=== PATIENT | female | born 1985 | race African-American/Black ===

== ENCOUNTER 2019-06-09 14:14 | Emergency (ER) | payer SELFPAY ==
[2019-06-09 14:26] VITALS: TEMP 97.8; BMI 29.8
--- NOTE | 2019-06-09 14:28 | PDOC ---
Rapid Medical Evaluation Time Seen by Provider: 06/09/19 14:23 Medical Evaluation: 06/09/19 14:23 The patient is a 33 y/o F who presents for shortness of breath for two weeks. Hx of asthma. LMP 04/23/19. Recently emigrated from [facility]. Exam: lungs CTAB Orders: labs, IV, urine Pt to proceed to the ER for further evaluation Discharge Disposition - Diagnosis Shortness of breath - Referrals - Patient Instructions - Post Discharge Activity
[2019-06-09] MEDS ORDERED: ALBUTEROL SO4 2.5/IPRATROPIUM 0.5 INH SOL 3 ML VIAL.NEB. NEB ONE ×2 (15:47→16:19)
--- NOTE | 2019-06-09 16:00 | PDOC ---
History of Present Illness - General Chief Complaint: Shortness of Breath Stated Complaint: SHORTNESS OF BREATH Time Seen by Provider: 06/09/19 14:23 History Source: Patient Exam Limitations: No Limitations - History of Present Illness Initial Comments: 06/09/19 15:56 33-year-old female currently 7 weeks based on LMP presents to ED with increasing shortness of breath of the past 2 weeks. Patient states recent travel from [facility] 30 days ago and has not seen a retail business manager or PCP since onset. Patient states has history of asthma but has not been wheezing or coughing. Patient states difficulty taking a deep breath and denies fever, chills chest pain or palpitations. Patient states shortness of breath is constant. Is this a multiple visit Asthma Patient?: No Timing/Duration: reports: other Severity: reports: moderate Associated Symptoms: reports: shortness of breath Past History - Travel Traveled outside of the country in the last 30 days: No Close contact w/someone who was outside of country & ill: No - Past Medical History Allergies/Adverse Reactions: Allergies Allergy/AdvReac Type Severity Reaction Status Date / Time No Known Allergies Allergy Verified 06/09/19 14:26 Asthma: Yes COPD: No - Psycho Social/Smoking Cessation Hx Smoking History: Never smoked Patient Lives Alone: No Lives with/in: spouse/SO Respiratory Specific PMHX - Complaint Specific PMHX Hx Asthma: Yes Review of Systems - Review of Systems Able to Perform ROS?: Yes Constitutional: No: Symptoms Reported HEENTM: No: Symptoms Reported Respiratory: Yes: Shortness of Breath Cardiac (ROS): No: Symptoms Reported ABD/GI: No: Symptoms Reported : No: Symptoms Reported Musculoskeletal: No: Symptoms Reported Integumentary: No: Symptoms Reported Neurological: No: Symptoms reported Endocrine: No: Symptoms Reported Hematologic/Lymphatic: No: Symptoms Reported *Physical Exam - Vital Signs Last Vital Signs Temp Pulse Resp BP Pulse Ox 97.8 F 79 16 106/59 L 100 06/09/19 14:19 06/09/19 14:19 06/09/19 14:19 06/09/19 14:19 06/09/19 14:19 - Physical Exam General Appearance: Yes: Nourished, Appropriately Dressed. No: Apparent Distress HEENT: negative: Pale Conjunctivae Neck: positive: Normal Thyroid Respiratory/Chest: positive: Lungs Clear, Decreased Breath Sounds (At bases with inspiration). negative: Chest Tender, Respiratory Distress, Accessory Muscle Use Cardiovascular: positive: Regular Rhythm, Regular Rate. negative: Murmur Extremity: positive: Normal Inspection Integumentary: positive: Normal Color, Warm, Moist Neurologic: positive: Motor Strength 5/5 (Ambulatory ) Heart Score/ECG Review - ECG Intrepretation Rhythm: Regular Rhythm (rate 73, normal sinus rhythm. No ST elevation or depression.) ED Treatment Course - LABORATORY CBC & Chemistry Diagram: 06/09/19 16:35 06/09/19 16:15 Medical Decision Making - Medical Decision Making 06/09/19 15:59 Chief complaint: Shortness of breath consistently for the past 2 weeks. Patient with recent travel to [facility] 4 weeks ago and is currently 7 weeks . Patient denies clotting disorders but states history of asthma. Patient does not have complaints of wheezing or cough Exam: Patient decreased breath sounds at bases with inspiration, vital signs stable Plan: Labs, EKG, urine, and d-dimer 06/09/19 18:03 Selected Entries 06/09/19 14:19 Temperature 97.8 F Pulse Rate 79 Respiratory 16 Rate Blood Pressure 106/59 L Blood Pressure 74 Mean O2 Sat by Pulse 100 Oximetry (%) Weight 83.915 kg Laboratory Tests 06/09/19 06/09/19 06/09/19 16:05 16:05 16:05 WBC Hgb Hct Absolute Neuts (auto) Neutrophils % Monocytes % PT with INR 12.00 INR 1.02 D-Dimer 6643 H Sodium Potassium Chloride Carbon Dioxide Anion Gap BUN Creatinine Est GFR (CKD-EPI)AfAm Est GFR (CKD-EPI)NonAf Random Glucose Calcium Total Bilirubin AST ALT Alkaline Phosphatase Total Protein Albumin Beta HCG, Quant 59202.8 06/09/19 06/09/19 16:15 16:35 WBC 3.7 L Hgb 12.7 Hct 38.8 Absolute Neuts (auto) 1.8 Neutrophils % 49.3 Monocytes % 10.7 H PT with INR INR D-Dimer Sodium 134 L Potassium 3.9 Chloride 103 Carbon Dioxide 25 Anion Gap 6 L BUN 4.9 L Creatinine 0.6 Est GFR (CKD-EPI)AfAm 136.87 Est GFR (CKD-EPI)NonAf 118.09 Random Glucose 77 Calcium 9.4 Total Bilirubin 0.3 AST 10 L ALT 17 Alkaline Phosphatase 50 Total Protein 7.8 Albumin 3.7 Beta HCG, Quant Patient concerning for PE. Patient ordered for duplex. If positive may start empirical treatment with heparin. 06/09/19 18:16 Discharge - Discharge Information Problems reviewed: Yes Clinical Impression/Diagnosis: Shortness of breath Condition: Fair Disposition: AGAINST MEDICAL ADVICE - Follow up/Referral Referrals: Chase Daniel MD [Staff Physician] - Khanh Dc MD [Staff Physician] - - Patient Discharge Instructions Additional Instructions: You are leaving the hospital AGAINST MEDICAL ADVICE. The medical plan for you was to have a CAT scan of your chest with IV contrast to rule out a blood clot in your lungs. To see her you refused this testing at this time. Admission was offered you to be evaluated by a senior database engineer. You refused this plan also. Leaving AGAINST MEDICAL ADVICE you accept all risks and responsibilities of complications due to shortness of breath and . You been given the names of an TRAFFIC DIVISION COMMANDING OFFICER and a senior database engineer to follow-up with as an outpatient. If any of your symptoms worsen, you are more than welcome to return to the emergency department for continued evaluation. You are leaving AGAINST MEDICAL ADVICE will not be held against you and we would welcome you to return for continued evaluation. - Post Discharge Activity
[2019-06-09 17:15] LABS: BASO % 0.7 % (0-2.0); HEMATOCRIT 38.8 % (32.4-45.2); HEMOGLOBIN 12.7 GM/dL (10.7-15.3); LYMPH % 38.3 % (8-40); MCH 28.4 pg (25.7-33.7); MCHC 32.8 g/dl (32.0-36.0); MEAN CELL VOLUME 86.4 fl (80-96); MEAN PLT VOLUME 7.7 fl (7.5-11.1); MONO % 10.7 % (3.8-10.2); NEUT % 49.3 % (42.8-82.8); PLATELET COUNT 297 K/MM3 (134-434); RBC 4.49 M/mm3 (3.60-5.2); RDW 13.9 % (11.6-15.6); WHITE BLOOD COUNT 3.7 K/mm3 (4.0-10.0)
[2019-06-09 17:42] LABS: ALBUMIN 3.7 g/dl (3.4-5.0); BILIRUBIN,TOTAL 0.3 mg/dL (0.2-1); BLOOD UREA NITROGEN 4.9 mg/dL (7-18); CALCIUM 9.4 mg/dL (8.5-10.1); CREATININE 0.6 mg/dL (0.55-1.3); POTASSIUM 3.9 mmol/L (3.5-5.1); TOT PROT 7.8 g/dl (6.4-8.2)
[2019-06-09 17:47] LABS: INR 1.02 (0.83-1.09)
[2019-06-09 18:17] LABS: URINE COLOR DK YELLOW
[2019-06-09 18:19] LABS: URINE APPEARANCE CLEAR; URINE GLUCOSE (UA) NEGATIVE (NEGATIVE)
[2019-06-09 18:20] LABS: URINE BILIRUBIN NEGATIVE (NEGATIVE)
[2019-06-09 18:23] LABS: URINE KETONE 1+ (NEGATIVE); URINE PROTEIN 1+ (NEGATIVE)
[2019-06-09 18:24] LABS: URINE LEUK ESTERASE NEGATIVE (NEGATIVE); URINE NITRITE NEGATIVE (NEGATIVE)
--- NOTE | 2019-06-09 20:40 | PDOC ---
*Physical Exam - Vital Signs Last Vital Signs Temp Pulse Resp BP Pulse Ox 97.8 F 79 16 106/59 L 100 06/09/19 14:19 06/09/19 14:19 06/09/19 14:19 06/09/19 14:19 06/09/19 15:55 ED Treatment Course - LABORATORY CBC & Chemistry Diagram: 06/09/19 16:35 06/09/19 16:15 - ADDITIONAL ORDERS Additional order review: Laboratory Results 06/09/19 06/09/19 06/09/19 16:35 16:15 16:05 PT with INR INR D-Dimer 6643 H Sodium 134 L Potassium 3.9 Chloride 103 Carbon Dioxide 25 Anion Gap 6 L BUN 4.9 L Creatinine 0.6 Est GFR (CKD-EPI)AfAm 136.87 Est GFR (CKD-EPI)NonAf 118.09 Random Glucose 77 Calcium 9.4 Total Bilirubin 0.3 AST 10 L ALT 17 Alkaline Phosphatase 50 Total Protein 7.8 Albumin 3.7 Beta HCG, Quant Urine Color Urine Appearance Urine pH Ur Specific [place] Urine Protein Urine Glucose (UA) Urine Ketones Urine Blood Urine Nitrite Urine Bilirubin Urine Urobilinogen Ur Leukocyte Esterase Blood Type O POSITIVE Antibody Screen Negative 06/09/19 06/09/19 06/09/19 16:05 16:05 16:05 PT with INR 12.00 INR 1.02 D-Dimer Sodium Potassium Chloride Carbon Dioxide Anion Gap BUN Creatinine Est GFR (CKD-EPI)AfAm Est GFR (CKD-EPI)NonAf Random Glucose Calcium Total Bilirubin AST ALT Alkaline Phosphatase Total Protein Albumin Beta HCG, Quant 66003.8 Urine Color Dk yellow Urine Appearance Clear Urine pH 6.0 Ur Specific [place] 1.029 Urine Protein 1+ H Urine Glucose (UA) Negative Urine Ketones 1+ H Urine Blood Negative Urine Nitrite Negative Urine Bilirubin Negative Urine Urobilinogen 1.0 Ur Leukocyte Esterase Negative Blood Type Antibody Screen 06/09/19 16:35 RBC 4.49 MCV 86.4 MCHC 32.8 RDW 13.9 MPV 7.7 Neutrophils % 49.3 Lymphocytes % 38.3 Monocytes % 10.7 H Eosinophils % 1.0 Basophils % 0.7 - Medications Given in the ED: ED Medications Discontinued Medications Generic Name Dose Route Start Last Admin Trade Name Freq PRN Reason Stop Dose Admin Albuterol/Ipratropium 1 amp 06/09/19 15:47 06/09/19 16:20 Duoneb - NEB 06/09/19 15:48 1 amp ONCE ONE Administration ED Progress Note - Progress Note Progress Note: 06/09/19 20:40 Received patient from nurse practitioner Tristian. Briefly this a 33-year-old woman who has had 4 to 5 days of shortness of breath. Patient recently traveled from [facility] and is currently 7 weeks . Patient with a d-dimer of 6643. Duplex Dopplers of bilateral lower extremities revealed no DVT. CTA of the chest is pending to rule out pulmonary embolism. 06/09/19 22:13 Medical Decision Making - Medical Decision Making 06/09/19 22:13 Consent discussed with patient who refuses to sign over concerns for the child. Patient was aware of risks of CAT scan on the child versus pulmonary embolism. Patient is adamant not to receive IV contrast and CAT scan at this time. Case has been discussed with Dr. Dc of CHEST PAIN COORDINATOR. He recommends deferring treatment until patient has a known study. Admission was discussed with the patient's risk reevaluated by pulmonology and so she could think about CTA study and potentially decide to have the scan. Patient refuses admission at this time. Case has been discussed with attending physician Mike who is aware that the patient will leave the hospital AGAINST MEDICAL ADVICE. The patient has requested to leave the ED against medical advice. Pt did not want CTA or admission. I believe this patient is of sound mind and competent to refuse medical care. The patient is responding and asking questions appropriately. The patient is oriented to person, place and time. The patient is not psychotic, delusional, suicidal, homicidal or hallucinating. The patient demonstrates a normal mental capacity to make decisions regarding their healthcare. The patient is clinically sober and does not appear to be under the influence of any illicit drugs at this time. The patient has been advised of the risks, in layman terms, of leaving AMA which include, but are not limited to: cardiac arrest, pulmonary infarct, myocardial infarction, arrhythmia, stroke, demise, respiratory failure, coma, severe permanent disability, loss of current lifestyle, delay in diagnosis and . Alternatives have been offered - the patient remains steadfast in their wish to leave. The patient has been advised that should they change their mind they are welcome to return to this hospital, or any other, at any time. The patient understands that in no way does an AMA discharge mean that I do not want them to have the best medical care available. To this end, I have provided appropriate prescriptions, referrals, and discharge instructions. The patient did sign AMA paperwork. The above discussion was witnessed by another member of staff, SEA Rios. Discharge - Discharge Information Problems reviewed: Yes Clinical Impression/Diagnosis: Shortness of breath Condition: Fair Disposition: AGAINST MEDICAL ADVICE - Admission No - Follow up/Referral Referrals: Khanh Dc MD [Staff Physician] - Chase Daniel MD [Staff Physician] - - Patient Discharge Instructions Additional Instructions: You are leaving the hospital AGAINST MEDICAL ADVICE. The medical plan for you was to have a CAT scan of your chest with IV contrast to rule out a blood clot in your lungs. To see her you refused this testing at this time. Admission was offered you to be evaluated by a apprentice painter neckties. You refused this plan also. Leaving AGAINST MEDICAL ADVICE you accept all risks and responsibilities of complications due to shortness of breath and . You been given the names of an CHEST PAIN COORDINATOR and a apprentice painter neckties to follow-up with as an outpatient. If any of your symptoms worsen, you are more than welcome to return to the emergency department for continued evaluation. You are leaving AGAINST MEDICAL ADVICE will not be held against you and we would welcome you to return for continued evaluation. - Post Discharge Activity
[2019-06-09 21:22] VITALS: BP 111/65; PULSE 75
--- NOTE | 2019-06-10 09:56 | EKG ---
Test Reason : Blood Pressure : / mmHG Vent. Rate : 073 BPM Atrial Rate : 073 BPM P-R Int : 178 ms QRS Dur : 080 ms QT Int : 386 ms P-R-T Axes : 057 015 032 degrees QTc Int : 425 ms NORMAL SINUS RHYTHM NONSPECIFIC T WAVE ABNORMALITY ABNORMAL ECG NO PREVIOUS ECGS AVAILABLE Confirmed by MD FLORIDALMA, ANA ([id number]) on 06/10/2019 9:55:40 AM Referred By: Confirmed By:ANA HEDRICK MD
== END 2019-06-09 20:45 | disposition left against medical advice (07) ==
LOC: JER 14:14
PROC: 3E0F7GC Introduction of Other Therapeutic Substance into Respiratory Tract, Via Natural or Artificial Opening (ICD-10-PCS; principal; 2019-06-09)
DX: O26.891 Other specified pregnancy related conditions, first trimester (principal); R06.02 Shortness of breath; Z3A.01 Less than 8 weeks gestation of pregnancy; Z87.09 Personal history of other diseases of the respiratory system
CPT/HCPCS: 36415; 80053; 81003; 84702; 85025; 85379; 85610; 86850; 86900; 86901; 87086; 93005; 93010; 93970-TC; 99284-25

== ENCOUNTER 2020-02-05 19:10 | Inpatient (IN) | payer OTHER ==
[2020-02-05] MEDS ORDERED: DINOPROSTONE 10 MG VAGINAL SUPPOSITORY VG ONE (20:58)
--- NOTE | 2020-02-05 21:02 | HP ---
Past Medical History - Admission Chief Complaint: Elective induction History of Present Illness: 34 yo @ 41 weeks gestation, EDC 01/29/20, admitted for cervidil induction. She has no complaints. History Source: Patient Limitations to Obtaining History: No Limitations - Past Medical History ...: 2 ...Para: 1 ...EDC by Bryan: 01/29/20 - Past Surgical History Past Surgical History: Yes: None Hx Myomectomy: No Hx Transabdominal Cerclage: No - Smoking History Smoking history: Never smoked - Alcohol/Substance Use Hx Alcohol Use: No History of Substance Use: reports: None - Social History Usual Living Arrangement: Yes: With Spouse History of Recent Travel: No Home Medications - Allergies Allergies/Adverse Reactions: Allergies Allergy/AdvReac Type Severity Reaction Status Date / Time No Known Allergies Allergy Verified 01/29/20 21:21 - Home Medications Home Medications: Ambulatory Orders Ferrous Sulfate [Feosol] 325 mg PO DAILY 01/29/20 Mv-Mn/Iron/FA/Herbal/Digestive [ One Tablet] 1 each PO DAILY 01/29/20 Family Medical History Family History: Unremarkable Review of Systems - Review of Systems Constitutional: reports: No Symptoms Eyes: reports: No Symptoms HENT: reports: No Symptoms Neck: reports: No Symptoms Cardiovascular: reports: No Symptoms Respiratory: reports: No Symptoms Gastrointestinal: reports: No Symptoms Genitourinary: reports: No Symptoms Breasts: reports: No Symptoms Reported Musculoskeletal: reports: No Symptoms Integumentary: reports: No Symptoms Neurological: reports: No Symptoms Pain Intensity: 0 Physical Exam - Maternity Constitutional: Yes: No Distress Eyes: Yes: Conjunctiva Clear HENT: Yes: Atraumatic Neck: Yes: Supple Cardiovascular: Yes: Regular Rate and Rhythm Lungs: Clear to auscultation Breast(s): Yes: WNL - Abdominal Exam/OB Number of Fetuses: Single Presentation: Vertex Contractions: No - Vaginal Exam/OB Vaginal Bleeding: No - Physical Exam Musculoskeletal: Yes: WNL Extremities: Yes: WNL ...Motor Strength: WNL Psychiatric: Yes: Alert, Oriented Problem List - Problems (1) Post-dates Problems reviewed: Yes Code(s): O48.0 - POST-TERM Qualifiers: Post-term type: 40-42 weeks gestation Qualified Code(s): O48.0 - Post-term Assessment/Plan Postdates Admit for cervidil induction
[2020-02-05 21:26] LABS: BASO % 0.3 % (0-2.0); HEMATOCRIT 35.6 % (32.4-45.2); HEMOGLOBIN 11.8 GM/dL (10.7-15.3); LYMPH % 32.3 % (8-40); MCH 30.2 pg (25.7-33.7); MCHC 33.3 g/dl (32.0-36.0); MEAN CELL VOLUME 90.9 fl (80-96); MEAN PLT VOLUME 8.3 fl (7.5-11.1); MONO % 9.2 % (3.8-10.2); NEUT % 57.2 % (42.8-82.8); PLATELET COUNT 265 K/MM3 (134-434); RBC 3.92 M/mm3 (3.60-5.2); RDW 14.1 % (11.6-15.6); WHITE BLOOD COUNT 4.9 K/mm3 (4.0-10.0)
[2020-02-05 21:34] LABS: INR 0.94 (0.83-1.09); PROTHROMBIN TIME (PATIENT) 11.1 SEC (9.7-13.0)
[2020-02-05 21:50] LABS: BLOOD UREA NITROGEN 4.1 mg/dL (7-18); CALCIUM 8.6 mg/dL (8.5-10.1); CREATININE 0.5 mg/dL (0.55-1.3); POTASSIUM 3.4 mmol/L (3.5-5.1)
--- NOTE | 2020-02-05 21:59 | PN ---
Progress Note (short form) - Note Progress Note: 34 yo , EGA 41 weeks for induction of labor VSS, afebrile EFM - 140/min, moderate variability, accelerations, no decelerations Tocos - irritability Pelvic - Closed/long/posterior/vertex Plan - Late term gestation for cervidil ripening Cervidil placed Anticipate vaginal delivery
[2020-02-05] MEDS: DEXTROSE 5%-LACTATED RINGERS 1,000 ML IV SCH (22:00)
[2020-02-05 23:13] VITALS: BMI 34.3
[2020-02-06] MEDS: DEXTROSE 5%-LACTATED RINGERS 1,000 ML IV SCH ×3 (06:00→20:00)
--- NOTE | 2020-02-06 10:03 | PN ---
Progress Note (short form) - Note Progress Note: Patient seen and evaluated, she's lying comfortably in bed. FHR : Reassuring [place] : + regular contractions VE : Cervix closed Cervidil removed A/P : Postdates S/P Cervidil induction Start Pitocin Analgesia as needed Problem List - Problems (1) Post-dates Code(s): O48.0 - POST-TERM Qualifiers: Post-term type: 40-42 weeks gestation Qualified Code(s): O48.0 - Post-term
[2020-02-06] MEDS: OXYTOCIN 30 UNITS in 0.9% NS 30 UNIT/500 ML INFUS.BAG IVPB SCH (11:00)
[2020-02-07] MEDS ORDERED: BUTORPHANOL TARTRATE 2 MG/ML VIAL IVPUSH PRN (03:07)
[2020-02-07] MEDS ORDERED: PROMETHAZINE HCL 25 MG/1 ML VIAL IVPB PRN (03:08)
[2020-02-07] MEDS ORDERED: FENTANYL/BUPIVACAINE/NS/PF - PCEA - 50 ML DISP.SYRIN EP ONE (04:41)
[2020-02-07] MEDS: ELECTROLYTE-148 SOLN 1,000 ML IV SCH (05:00)
[2020-02-07] MEDS: FENTANYL/BUPIVACAINE/NS/PF - PCEA - 50 ML DISP.SYRIN EP SCH (05:20)
[2020-02-07] MEDS ORDERED: NALOXONE HCL 0.4 MG/ML VIAL IVPUSH PRN (05:34)
[2020-02-07] MEDS ORDERED: BUPIVACAINE HCL/PF 0.25% (2.5MG/ML) 10 ML VIAL ONE (06:21)
[2020-02-07] MEDS ORDERED: ELECTROLYTE-148 SOLN 500 ML IV ONE (08:51)
[2020-02-07] MEDS ORDERED: CITRIC ACID/SODIUM CITRATE 30 ML UNIT-DOSE CUP PO ONE (08:51)
[2020-02-07] MEDS ORDERED: PCA PUMP NR ONE (08:52)
--- NOTE | 2020-02-07 08:57 | PN ---
Progress Note (short form) - Note Progress Note: Patient seen and evaluated, she's lying comfortably in bed. She's status post epidural anesthesia. FHR : 150's, decrease variability, occasional variable decelerations. [place] : Contractions absent VE : Cervix 4-5/90/-1 A/P : Postdates Failed medical induction Non-reassuring heart rate Consent signed for primary Anesthesiologist called Problem List - Problems (1) Post-dates Code(s): O48.0 - POST-TERM Qualifiers: Post-term type: 40-42 weeks gestation Qualified Code(s): O48.0 - Post-term
[2020-02-07] MEDS ORDERED: SODIUM BICARBONATE 8.4% 50 MEQ/50 ML VIAL ONE (09:08)
[2020-02-07] MEDS ORDERED: LIDO 2%/EPI 1:200000 PRESRVFRE (20 ML SDVIAL) ONE (09:09)
[2020-02-07] MEDS ORDERED: OXYTOCIN 20 UNITS in 0.9% NS 20 UNIT/1,000 ML INFUS.BAG IV ONE ×2 (09:30→13:04)
[2020-02-07] MEDS ORDERED: ceFAZolin SODIUM 1 GM VIAL ONE (09:32)
[2020-02-07] MEDS ORDERED: ePHEDrine SULFATE 50 MG/1 ML AMPULE ONE (09:36)
[2020-02-07] MEDS ORDERED: METHYLERGONOVINE MALEATE 0.2 MG/1 ML AMP IM PRN (10:21)
[2020-02-07] MEDS ORDERED: oxyCODONE HCL 5 MG TABLET PO PRN (10:21)
[2020-02-07] MEDS ORDERED: IBUPROFEN 800 MG/8 ML IJ IVPB PRN (10:21)
[2020-02-07 10:23] LABS: CORD BASE EXCESS -5.5 mmol/L (0-2); CORD HCO3 20.7 mmHg (20-29); CORD HCO3 24.1 mmHg (20-29); CORD PCO2 42.7 mmHg (30-78); CORD PCO2 50.9 mmHg (30-78); CORD pH 7.293 (7.14-7.44); CORD pH 7.303 (7.14-7.44)
--- NOTE | 2020-02-07 10:25 | OP ---
Operative Note - Note: Operative Date: 02/07/20 Pre-Operative Diagnosis: Nonreassuring Heart Rate / Failed Medical Induction Operation: Primary Low Transverse Findings: Baby girl in LOT position Post-Operative Diagnosis: Same as Pre-op Surgeon: Ilana Garner Dial Printer: Monico Nuñez Anesthesia: Epidural Specimens Removed: Placenta Estimated Blood Loss (mls): 700
[2020-02-07] MEDS: OXYTOCIN 20 UNITS in 0.9% NS 20 UNIT/1,000 ML INFUS.BAG IV SCH (10:45)
--- NOTE | 2020-02-07 14:14 | PN ---
Progress Note (short form) - Note Progress Note: I assisted jigar Squires at the c/section for the entirety of the case.
[2020-02-08 07:59] LABS: BASO % 0.3 % (0-2.0); EOS % 0.2 % (0-4.5); HEMATOCRIT 33.4 % (32.4-45.2); LYMPH % 10.3 % (8-40); MCH 29.9 pg (25.7-33.7); MCHC 32.9 g/dl (32.0-36.0); MEAN CELL VOLUME 90.7 fl (80-96); MONO % 5.9 % (3.8-10.2); NEUT % 83.3 % (42.8-82.8); PLATELET COUNT 240 K/MM3 (134-434); RBC 3.69 M/mm3 (3.60-5.2); RDW 14.2 % (11.6-15.6); WHITE BLOOD COUNT 12.8 K/mm3 (4.0-10.0)
[2020-02-08] MEDS ORDERED: BISACODYL 10 MG SUPP.RECT RC PRN (10:21)
[2020-02-08] MEDS: IBUPROFEN 600 MG TABLET (FP) PO PRN (17:11)
[2020-02-08] MEDS: SIMETHICONE 80 MG TAB.CHEW (FP) PO PRN (17:12)
[2020-02-08] MEDS: DEXTROSE 5%-LACTATED RINGERS 1,000 ML IV SCH (21:03)
--- NOTE | 2020-02-08 23:48 | PN ---
Post Note - Post Date of Delivery: 02/07/20 Post Day: 1 Vital Signs: Vital Signs - 24 hr 02/08/20 02/08/20 02/08/20 00:00 01:00 02:00 Temperature 99.0 F Pulse Rate 94 H Respiratory 18 18 18 Rate Blood Pressure 105/59 L 02/08/20 02/08/20 02/08/20 03:00 04:00 06:00 Temperature 98.7 F Pulse Rate 75 Respiratory 18 18 18 Rate Blood Pressure 99/55 L 02/08/20 02/08/20 02/08/20 08:00 10:00 21:35 Temperature 98.5 F 98.6 F Pulse Rate 67 76 Respiratory 20 20 18 Rate Blood Pressure 107/68 110/67 Labs: Laboratory Results - last 24 hr 02/08/20 07:40 WBC 12.8 H RBC 3.69 Hgb 11.0 Hct 33.4 MCV 90.7 MCH 29.9 MCHC 32.9 RDW 14.2 Plt Count 240 MPV 8.0 Absolute Neuts (auto) 10.7 H Neutrophils % 83.3 H D Lymphocytes % 10.3 D Monocytes % 5.9 Eosinophils % 0.2 Basophils % 0.3 Nucleated RBC % 0 - Subjective Subjective: No Complaints - Objective Afebrile: Yes Breast: Not engorged Abdomen: Soft, Non-tender, Other (+ dressing dry) Uterus: Fundus firm Vagina: Scant lochia Extremities: Non-tender - Assessment/Plan (1) History of low transverse section Assessment: Other (POD1) Plan: Routine Care
[2020-02-09] MEDS: IBUPROFEN 600 MG TABLET (FP) PO PRN ×3 (05:52→20:22)
[2020-02-09] MEDS: SIMETHICONE 80 MG TAB.CHEW (FP) PO PRN ×3 (05:53→20:23)
--- NOTE | 2020-02-09 08:19 | PN ---
Post Note - Post Date of Delivery: 02/07/20 Post Day: 2 Vital Signs: Vital Signs - 24 hr 02/08/20 02/08/20 10:00 21:35 Temperature 98.5 F 98.6 F Pulse Rate 67 76 Respiratory 20 18 Rate Blood Pressure 107/68 110/67 - Subjective Subjective: No Complaints - Objective Afebrile: Yes Breast: Not engorged Abdomen: Soft, Non-tender Uterus: Fundus firm Vagina: Scant lochia Extremities: Non-tender - Assessment/Plan (1) History of low transverse section Assessment: Other (SP CS POD2) Plan: Routine Care
[2020-02-09] MEDS: OXYTOCIN 20 UNITS in 0.9% NS 20 UNIT/1,000 ML INFUS.BAG IV SCH ×2 (15:40→18:56)
[2020-02-09] MEDS: FENTANYL/BUPIVACAINE/NS/PF - PCEA - 50 ML DISP.SYRIN EP SCH ×2 (15:40→18:56)
[2020-02-09] MEDS: ELECTROLYTE-148 SOLN 1,000 ML IV SCH ×2 (15:40→18:56)
[2020-02-09] MEDS: DEXTROSE 5%-LACTATED RINGERS 1,000 ML IV SCH (18:56)
[2020-02-09] MEDS: OXYTOCIN 30 UNITS in 0.9% NS 30 UNIT/500 ML INFUS.BAG IVPB SCH ×2 (19:26→19:27)
--- NOTE | 2020-02-09 21:52 | OP ---
DATE OF OPERATION: 02/07/2020 PREOPERATIVE DIAGNOSIS: Nonreassuring heart rate, failed medical induction at 41 weeks' gestation. POSTOPERATIVE DIAGNOSIS: Nonreassuring heart rate, failed medical induction at 41 weeks' gestation. PROCEDURE: Primary low transverse section. SURGEON: Ilana Garner MD WOOL PULLER: Monico Nuñez MD ANESTHESIA: Epidural. COMPLICATIONS: None. ESTIMATED BLOOD LOSS: 700 mL. DESCRIPTION OF PROCEDURE: Patient was taken to the operating room where epidural anesthesia was found to be adequate. Patient was then prepped and draped in proper sterile fashion. A Pfannenstiel skin incision was then made and carried down through the underlying layer of fascia. The fascia was incised in the midline and extended laterally. The superior aspect of the fascial incision was then grasped with a Arun clamp, elevated, and the rectus muscle dissected off bluntly. Attention was then turned to the inferior aspect of the fascial incision, which in a similar fashion was then grasped with a Arun clamp, elevated, and the rectus muscle dissected off bluntly. The rectus muscle was then in the midline, the peritoneum identified and entered sharply with the Metzenbaum scissors. The peritoneal incision was extended superiorly and inferiorly, with good visualization of the bladder, the vesicouterine peritoneum was then entered using the Metzenbaum scissors. This incision was extended laterally and a bladder flap created digitally. The bladder blade was inserted, and the lower uterine segment was incised using a 10-blade. This incision was extended laterally and the head delivered atraumatically. Nose and mouth were suctioned and the cord clamped and cut. The was handed to the waiting technology specialist. The placenta was removed manually. The uterus was exteriorized and cleared of all clots and debris. The uterine incision was repaired using 0 Biosyn in a running locked fashion. A second layer of the same suture was used as a means to provide excellent hemostasis, and the pelvis was then completely irrigated. The uterus was returned to the abdomen. Then the peritoneum was closed using 2-0 Biosyn. The fascia was reapproximated using 0 Vicryl in a running fashion, and the skin was closed in a subcuticular fashion using 3-0 Vicryl. Patient tolerated the procedure well. Patient was then taken to PACU in stable condition. PATHOLOGY: Placenta. ILANA GARNER M.D. RAFAEL/[id number]
[2020-02-10 07:20] LABS: BASO % 0.3 % (0-2.0); EOS % 2.5 % (0-4.5); HEMATOCRIT 31.7 % (32.4-45.2); HEMOGLOBIN 10.7 GM/dL (10.7-15.3); LYMPH % 26.2 % (8-40); MCH 30.8 pg (25.7-33.7); MCHC 33.9 g/dl (32.0-36.0); MEAN CELL VOLUME 90.9 fl (80-96); MEAN PLT VOLUME 7.9 fl (7.5-11.1); MONO % 5.3 % (3.8-10.2); NEUT % 65.7 % (42.8-82.8); PLATELET COUNT 289 K/MM3 (134-434); RBC 3.49 M/mm3 (3.60-5.2); WHITE BLOOD COUNT 5.8 K/mm3 (4.0-10.0)
[2020-02-10 09:07] VITALS: BP 106/69; PULSE 77; TEMP 97.9
--- NOTE | 2020-02-10 10:18 | DS ---
Physical Exam-ROUTE SUPERVISOR Vital Signs: Vital Signs Temperature 97.9 F 02/10/20 09:04 Pulse Rate 77 02/10/20 09:04 Respiratory Rate 20 02/10/20 09:04 Blood Pressure 106/69 02/10/20 09:04 O2 Sat by Pulse Oximetry (%) 100 02/07/20 11:40 Constitutional: Yes: Well Nourished Eyes: Yes: Conjunctiva Clear HENT: Yes: Atraumatic Neck: Yes: Supple Cardiovascular: Yes: Regular Rate and Rhythm Respiratory: Yes: Regular Gastrointestinal: Yes: Normal Bowel Sounds External Genitalia: Yes: Normal Uterus: Yes: Firm Wound/Incision: Yes: Clean/Dry, Well Approximated, Steri Strips (in place) Neurological: Yes: Alert, Oriented ...Motor Strength: WNL Psychiatric: Yes: Alert, Oriented Labs: CBC, BMP 02/10/20 06:51 02/05/20 20:35 Delivery - Delivery Type of Anesthesia: Spinal Episiotomy/Laceration: None EBL (cc): 700 Delivery, Single - Stages of Labor Date of Delivery: 02/07/20 Time of Delivery: 09:43 Time Placenta Delivered: 09:44 - Condition of Infant Customer Support Technician/Bed Teacher Present: Yes Name: Marlene Slade Infant Gender: Female Weight: 7 lb 9 oz Position: Left, OT Total Hours ROM (Hrs/Mins): 28m3zhv - 1 Minute Total Score: 9 5 Minutes Total Score: 10 - [place] Feeding Plan Initial Plan: Exclusive throughout hospitalization Discharge Summary Problems reviewed: Yes Reason For Visit: INDUCTION Current Active Problems History of low transverse section (Acute) Post-dates (Acute) Procedures: Principal: Primary Low Transverse Hospital Course: Routine post op care Health Concerns: None Plan of Treatment: Ambulation Analgesia F/U with MD in 1 week Goals: Resume regular activities in 4-6 weeks Condition: Good - Instructions Diet, Activity, Other Instructions: Regular diet No driving, no lifting x 4 weeks F/U with MD in 1 week Disposition: HOME - Home Medications Comprehensive Discharge Medication List: Ambulatory Orders Ferrous Sulfate [Feosol] 325 mg PO DAILY 01/29/20 Mv-Mn/Iron/FA/Herbal/Digestive [ One Tablet] 1 each PO DAILY 01/29/20
--- NOTE | 2020-02-12 17:13 | PATH ---
Surgical Pathology Report Patient Name: PAN MORTON Med. Rec. #: [id number] /Age/Gender: 1985 (Age: 34) / F Account: [id number] Location: [facility] [employer] Taken: 02/07/2020 Received: 02/09/2020 Reported: 02/12/2020 Physicians: Ilana Garner M.D. Specimen(s) Received PLACENTA Clinical History at 41.2 weeks, primary , failed induction, nonreassuring heart rate Final Diagnosis PLACENTA, SECTION: 463 G THIRD TRIMESTER PLACENTA WITH TRIVASCULAR UMBILICAL CORD AND UNREMARKABLE PLACENTAL MEMBRANES. Electronically Signed Pauline Pina M.D. Gross Description The specimen is received fresh labeled placenta and is a 463 gram, 18.0 x 15.0 x 2.8 cm. placenta with attached membranes and umbilical cord. The attached membranes are turner, translucent with focal opacities and insert marginally. The umbilical cord measures 20 cm. in length and averages 1.1 cm. in diameter. The cord inserts eccentrically, 5.5 cm. to the nearest margin. No true knots or strictures are identified. Cut surface of the umbilical cord reveals 3 vessels. The surface is baker-blue with minimal fibrin deposition and appropriate caliber vessels. The maternal surface is red-brown with focal defects. Sectioning reveals red-brown, spongy parenchyma. No lesions are identified. Electrical Foreman sections are submitted in three cassettes as follows: 1- membrane rolls and umbilical cord; 2-3- full thickness sections of placenta. 02/11/2020 [facility]02/11/2020
== END 2020-02-10 10:50 | disposition home or self-care (01) | DRG 540 ==
LOC: JLDR 19:10 → J3W 02-07 14:00
PROVIDERS: ADMIT Obstetrics & Gynecology; ATTEND Obstetrics & Gynecology
PROC: 3E0P7VZ Introduction of Hormone into Female Reproductive, Via Natural or Artificial Opening (ICD-10-PCS; 2020-02-05)
PROC: 3E033VJ Introduction of Other Hormone into Peripheral Vein, Percutaneous Approach (ICD-10-PCS; 2020-02-06)
PROC: 10D00Z1 Extraction of Products of Conception, Low, Open Approach (ICD-10-PCS; principal; 2020-02-07)
DX: O48.0 Post-term pregnancy (principal); O76 Abnormality in fetal heart rate and rhythm complicating labor and delivery; O61.0 Failed medical induction of labor; O34.211 Maternal care for low transverse scar from previous cesarean delivery; Z3A.41 41 weeks gestation of pregnancy; Z37.0 Single live birth
CPT/HCPCS: 36415; 36600; 80048; 82803; 85025; 85610; 85730; 86780; 86850; 86900; 86901; 87389; 88307-TC; U0003

== ENCOUNTER 2020-03-29 11:54 | Emergency (ER) | payer OTHER ==
[2020-03-29 11:59] VITALS: TEMP 98.2; BMI 31.3
[2020-03-29 12:34] LABS: BASO % 0.7 % (0-2.0); EOS % 1.8 % (0-4.5); HEMATOCRIT 38.8 % (32.4-45.2); HEMOGLOBIN 12.6 GM/dL (10.7-15.3); LYMPH % 40.8 % (8-40); MCH 28.8 pg (25.7-33.7); MCHC 32.5 g/dl (32.0-36.0); MEAN CELL VOLUME 88.6 fl (80-96); MEAN PLT VOLUME 7.4 fl (7.5-11.1); MONO % 6.9 % (3.8-10.2); NEUT % 49.8 % (42.8-82.8); PLATELET COUNT 300 K/MM3 (134-434); RBC 4.39 M/mm3 (3.60-5.2); RDW 12.9 % (11.6-15.6); WHITE BLOOD COUNT 3.7 K/mm3 (4.0-10.0)
--- NOTE | 2020-03-29 12:42 | PDOC ---
History of Present Illness - General Chief Complaint: Muscle Cramping Stated Complaint: SENT BY PCP / BLOOD WORK Time Seen by Provider: 03/29/20 12:11 History Source: Patient Exam Limitations: Clinical Condition - History of Present Illness Initial Comments: 03/29/20 12:38 Patient with past medical history of asthma and 7 weeks presented with complaint of persistent pain to posterior right popliteal and distal thigh area which is worse when she sitting down. Patient went to see PCP for the first time to initiate care and was sent by PCP Dr. Debra Long to rule out DVT and do blood work. Patient denies any shortness of breath now. Patient reported has been having persistent asthma symptoms throughout her which she has improved after delivery 6 weeks ago. Denies shortness of breath now. Denies chest pain, palpitations, numbness or tingling sensation, nausea, vomiting, dizziness, abdominal pain. Denies any other symptoms. Patient has not taken anything for symptoms Is this a multiple visit Asthma Patient?: No Timing/Duration: 1 week Past History - Medical History Allergies/Adverse Reactions: Allergies Allergy/AdvReac Type Severity Reaction Status Date / Time No Known Drug Allergies Allergy Verified 03/29/20 11:56 spices Allergy Mild Difficulty Uncoded 03/29/20 11:56 Breathing Home Medications: Ambulatory Orders Ferrous Sulfate [Feosol] 325 mg PO DAILY 01/29/20 Mv-Mn/Iron/FA/Herbal/Digestive [ One Tablet] 1 each PO DAILY 01/29/20 Ibuprofen 800 mg PO Q8H PRN #20 tablet 03/29/20 Methocarbamol [Robaxin -] 500 mg PO BID PRN #14 tablet 03/29/20 Asthma: Yes Cancer: No Cardiac Disorders: No COPD: No Diabetes: No HTN: No Seizures: No Thyroid Disease: No - Reproductive History Is Patient Now?: No - Immunization History Immunization Up to Date: Yes - Psycho-Social/Smoking History Smoking History: Never smoked - Substance Abuse Hx (Audit-C & DAST Scrn) How often the patient has a drink containing alcohol: Never Score: In Men: 4 or > Positive; In Women: 3 or > Positive: 0 Screen Result (Pos requires Nsg. Audit-10AR): Negative In the last yr the pt used illegal drug/Rx for NonMed reason: No Score: Yes response is considered Positive: 0 Screen Result (Positive result requires Nsg. DAST-10): Negative Review of Systems - Review of Systems Able to Perform ROS?: Yes Is the patient limited Ethiopian proficient: No Constitutional: No: Chills, Fever, Malaise HEENTM: No: Symptoms Reported, See HPI, Eye Pain, Blurred Vision, Tearing, Recent change in vision, Double Vision, Cataracts, Ear Pain, Ocular Prothesis, Ear Discharge, Nose Pain, Nose Congestion, Tinnitus, Nose Bleeding, Hearing Loss, Throat Pain, Throat Swelling, Mouth Pain, Dental Problems, Difficulty Swallowing, Mouth Swelling, Other Respiratory: No: Symptoms reported, See HPI, Cough, Orthopnea, Shortness of Breath, SOB with Exertion, SOB at Rest, Stridor, Wheezing, Productive cough, Hemoptysis, Other Cardiac (ROS): No: Symptoms Reported, See HPI, Chest Pain, Edema, Irregular Heart Rate, Lightheadedness, Palpitations, Syncope, Chest Tightness, Other ABD/GI: No: Symptoms Reported, See HPI, Nausea, Vomiting, Abdominal cramping : No: Symptoms Reported Musculoskeletal: Yes: Symptoms Reported, See HPI, Joint Pain (posterior right knee), Muscle Pain (posterior right thigh) Integumentary: No: Symptoms Reported Neurological: No: Symptoms reported, Headache, Numbness, Paresthesia, Weakness, Dizziness All Other Systems: Reviewed and Negative *Physical Exam - Vital Signs Last Vital Signs Temp Pulse Resp BP Pulse Ox 98.2 F 80 20 104/58 L 100 03/29/20 11:57 03/29/20 11:57 03/29/20 11:57 03/29/20 11:57 03/29/20 11:57 - Physical Exam 03/29/20 12:42 GENERAL: Well developed, well nourished. Awake and alert. No acute distress. CARDIOVASCULAR: Regular rate and rhythm. No murmurs, rubs, or gallops. PULMONARY: No evidence of respiratory distress. Lungs clear to auscultation bilaterally. No wheezing, rales or rhonchi. MUSCULOSKELETAL : Moderate tenderness over popliteal and distal posterior right thigh. No bony deformities. Negative Homans sign EXTREMITIES: No cyanosis. No clubbing. No edema. No calf tenderness. Negative Homans sign SKIN: Warm and dry. Normal capillary refill. No rashes. No jaundice. NEUROLOGICAL: Alert, awake, appropriate. No motor deficits in the lower extremities. Gait is normal without ataxia. PSYCHIATRIC: Cooperative. Good eye contact. Appropriate mood and affect. General Appearance: Yes: Nourished, Appropriately Dressed. No: Apparent Distress ED Treatment Course - LABORATORY CBC & Chemistry Diagram: 03/29/20 12:20 03/29/20 12:20 - ADDITIONAL ORDERS Additional order review: 03/29/20 12:20 RBC 4.39 MCV 88.6 MCHC 32.5 RDW 12.9 MPV 7.4 L Neutrophils % 49.8 D Lymphocytes % 40.8 H D Monocytes % 6.9 Eosinophils % 1.8 Basophils % 0.7 - RADIOLOGY Radiology Studies Ordered: Category Date Time Status DUPLEX VASCUL US-1 LEG [US] Stat Ultrasound 03/29/20 12:24 Ordered Medical Decision Making - Medical Decision Making 03/29/20 12:40 Patient with past medical history of asthma and 7 weeks presented with complaint of persistent pain to posterior right popliteal and distal thigh area which is worse when she sitting down which patient described as stretching of the muscles of the leg. Patient went to see PCP for the first time to initiate care and was sent by PCP Dr. Debra Long to rule out DVT and do blood work. Patient denies any shortness of breath now. Patient reported has been having persistent asthma symptoms throughout her which she has improved after delivery 6 weeks ago. Denies shortness of breath now. Denies chest pain, palpitations, numbness or tingling sensation, nausea, vomiting, dizziness, abdominal pain. Denies any other symptoms. Patient has not taken anything for symptoms Clinical exam unremarkable except moderate tenderness to posterior popliteal and distal posterior right thigh. No calf tenderness to right lower extremity. Negative Homans sign. No swelling to right lower extremity. No increased warmth to calf muscle. Lungs clear to auscultation bilateral patient in no acute respiratory distress. Normal cardio exam. Patient symptoms likely muscle strain versus less likely DVT. Basic blood work CBC, CMP and coags lab ordered as per PCP request. Duplex ultrasound ordered to rule out DVT. Patient be discharged home on NSAIDs and muscle relaxer if negative DVT with follow-up back with PCP 03/29/20 15:19 CBC and chemistry lab unremarkable and coags lab normal. Checks x-ray shows no acute abnormality. Duplex ultrasound shows no DVT. Patient symptoms likely muscle cramps and stable for discharge and ibuprofen PRN for pain and Robaxin for spasm and advised to do hot compresses with PCP follow-up Discharge - Discharge Information Problems reviewed: Yes Clinical Impression/Diagnosis: Cramps of right lower extremity Condition: Stable Disposition: HOME - Admission No - Additional Discharge Information Prescriptions: Ibuprofen 800 mg PO Q8H PRN #20 tablet PRN Reason: pain Methocarbamol [Robaxin -] 500 mg PO BID PRN #14 tablet PRN Reason: cramps/muscle spasm - Follow up/Referral Referrals: Lupis Mario MD [Primary Care Provider] - - Patient Discharge Instructions Patient Printed Discharge Instructions: DI for Nocturnal Leg Cramps Additional Instructions: Your chest x-ray was normal. Your blood work is normal. Your ultrasound of your leg shows no blood clot. Your pain is likely from muscle cramps. Take prescribed medication as prescribed for muscle cramps. Apply hot compresses to leg 2-3 times a day as needed for pain. Follow-up with your primary care - Post Discharge Activity
[2020-03-29 12:43] LABS: INR 1.01 (0.83-1.09); PROTHROMBIN TIME (PATIENT) 11.9 SEC (9.7-13.0)
[2020-03-29 12:46] LABS: ACTIVATED PTT 33.1 SECONDS (25.2-36.5)
[2020-03-29] MEDS ORDERED: NAPROXEN 500 MG TABLET PO ONE (13:13)
[2020-03-29] MEDS ORDERED: METHOCARBAMOL 500 MG TABLET PO ONE (13:13)
[2020-03-29] MEDS ORDERED: METHOCARBAMOL 500 MG TABLET ONE ×2 (13:15→13:16)
[2020-03-29] MEDS ORDERED: NAPROXEN 500 MG TABLET ONE ×2 (13:15→13:16)
[2020-03-29 13:21] LABS: ALBUMIN 3.8 g/dl (3.4-5.0); BILIRUBIN,TOTAL 0.3 mg/dL (0.2-1); BLOOD UREA NITROGEN 11.5 mg/dL (7-18); CALCIUM 9.8 mg/dL (8.5-10.1); CREATININE 0.7 mg/dL (0.55-1.3); POTASSIUM 4.2 mmol/L (3.5-5.1); TOT PROT 8.2 g/dl (6.4-8.2)
[2020-03-29 15:26] VITALS: BP 118/73; PULSE 76
== END 2020-03-29 15:27 | disposition home or self-care (01) ==
LOC: SUPCPDRO 11:54 → JER 11:54
DX: M79.661 Pain in right lower leg (principal)
CPT/HCPCS: 36415; 71046-TC-FY; 80053; 85025; 85610; 85730; 93971-TC; 99285-25

== ENCOUNTER 2020-04-03 06:42 | Emergency (ER) | payer OTHER ==
[2020-04-03 07:21] VITALS: BMI 31.3
--- NOTE | 2020-04-03 07:43 | PDOC ---
History of Present Illness - General Chief Complaint: Revisit,Radiology Variance Stated Complaint: SENT BY PCP Time Seen by Provider: 04/03/20 07:42 History Source: Patient Exam Limitations: No Limitations - History of Present Illness Initial Comments: 04/03/20 09:20 30F with PMH of asthma and ~8 weeks with presents with right leg tenderness. She reported it started shortly after the , and worsened about 2 weeks ago. She was seen here last week, U/S was done, and inconclusive, and subsequently discharged. She reports continued pain in the right lower leg and thigh that's worse with movement, is constant. She also reports constant long-term low back pain and paresthesia at anterior right lower leg, without weakness. Denies radiation of low back pain to right leg. Denies hx/o DVT or PE. Denies lightheadedness, chest pain, SOB, or LE edema. PMH: as in HPI SH: see below Meds: ibuprofen Allergies: NKDA Tob/Etoh/Rec drugs: neg x3 PCP: ROS GENERAL/CONSTITUTIONAL: No fever or chills. No weakness. HEENT: No change in vision. No ear pain or discharge. No sore throat. CARDIOVASCULAR: No chest pain or shortness of breath RESPIRATORY: No cough, wheezing, or hemoptysis. GASTROINTESTINAL: No nausea, vomiting, diarrhea or constipation. GENITOURINARY: No dysuria, frequency, or change in urination. MUSCULOSKELETAL: No joint or muscle swelling or pain. No neck or back pain. SKIN: No rash NEUROLOGIC: No headache, vertigo, loss of consciousness, or change in strength/sensation. ENDOCRINE: No increased thirst. No abnormal weight change HEMATOLOGIC/LYMPHATIC: No anemia, easy bleeding, or history of blood clots. ALLERGIC/IMMUNOLOGIC: No hives or skin allergy. PE GENERAL: Awake, alert, and fully oriented; no acute distress HEAD: No signs of trauma, normocephalic, atraumatic EYES: PERRLA, EOMI, sclera anicteric, conjunctiva clear ENT: Auricles normal inspection, hearing grossly normal, nares patent, moist mucosa, oropharynx clear without exudates. NECK: Normal ROM, supple, no LAD, JVD, or masses HEART: Regular rate and rhythm, normal S1/S2, no murmurs, rubs or gallops, peripheral pulses normal and equal bilaterally. LUNGS: No distress, speaks full sentences, clear to auscultation bilaterally ABDOMEN: Soft, nontender. No guarding, no rebound. No masses EXTREMITIES: no edema or erythema, + tenderness to palpation of posterior right distal thigh and posterior calf. + Lew sign NEUROLOGICAL: CNII-XII grossly intact. Normal speech, no focal sensorimotor deficits SKIN: Warm, Dry, normal turgor, no rashes or lesions noted Assessment and Plan 1. DVT - moderate risk Well's score for DVT 2. Sciatica Todd Moore, PGY1 Emergency Medicine Past History - Medical History Allergies/Adverse Reactions: Allergies Allergy/AdvReac Type Severity Reaction Status Date / Time No Known Drug Allergies Allergy Verified 03/29/20 11:56 spices Allergy Mild Difficulty Uncoded 03/29/20 11:56 Breathing Home Medications: Ambulatory Orders Ferrous Sulfate [Feosol] 325 mg PO DAILY 01/29/20 Mv-Mn/Iron/FA/Herbal/Digestive [ One Tablet] 1 each PO DAILY 01/29/20 Ibuprofen 800 mg PO Q8H PRN #20 tablet 03/29/20 Methocarbamol [Robaxin -] 500 mg PO BID PRN #14 tablet 03/29/20 Asthma: Yes Cancer: No Cardiac Disorders: No COPD: No Diabetes: No HTN: No Seizures: No Thyroid Disease: No - Reproductive History Is Patient Now?: No - Immunization History Immunization Up to Date: Yes - Psycho-Social/Smoking History Smoking History: Never smoked - Substance Abuse Hx (Audit-C & DAST Scrn) How often the patient has a drink containing alcohol: Never Score: In Men: 4 or > Positive; In Women: 3 or > Positive: 0 Screen Result (Pos requires Nsg. Audit-10AR): Negative *Physical Exam - Vital Signs Last Vital Signs Temp Pulse Resp BP Pulse Ox 98.2 F 70 18 127/92 100 04/03/20 07:20 04/03/20 07:20 04/03/20 07:20 04/03/20 07:20 04/03/20 07:20 Medical Decision Making - Medical Decision Making 04/03/20 09:51 30F with PMH of asthma and ~8 weeks with presents with right leg pain. Exam demonstrated right posterior calf and thigh tenderness to palpation, without swelling or erythema. Moderate risk Well's score for DVT. DDx: - DVT - tenderness at calf, 8 weeks ago - sciatica - complains of low back pain with occasional radiation of posterior right leg, + straight leg test - SI joint inflammation - negative CIPRIANO test, unlikely Seen in ED on 03/29. Lower ext doppler US (03/29) did not find evidence of DVT but was unable to visualize second right posterior tibial vein -- exam inconclusive. No evidence of Alvarenga's cyst. Given 600mg motrin. Lower ext doppler US (04/03) - negative for DVT; demonstrated Alvarenga's cyst. DVT unlikely, clinically correlates with Alvarenga's cyst on reevaluation. Pt safe for discharge, advised to take motrin/tylenol at home, and to follow up with PMD. Discharge - Discharge Information Problems reviewed: Yes Clinical Impression/Diagnosis: Sciatica Qualifiers: Laterality: right Qualified Code(s): M54.31 - Sciatica, right side Alvarenga cyst Qualifiers: Laterality: right Qualified Code(s): M71.21 - Synovial cyst of popliteal space [Alvarenga], right knee Condition: Improved Disposition: HOME - Admission No - Follow up/Referral Referrals: Lupis Mario MD [Primary Care Provider] - - Patient Discharge Instructions Patient Printed Discharge Instructions: DI for Alvarenga's Cyst Additional Instructions: You were seen in the ED for complaints of right lower leg pain. In the ED you were evaluated with Doppler Ultrasound of the right lower leg. Your results did not show evidence of blood clot or DVT, but showed Alvarenga cyst. There does not appear to be an acute need for immediate hospitalization. You are advised to follow up with your Primary Care Physician within 1 week. Use Motrin, advil, or tylenol for pain control as needed. Return to the ED immediately if you experience pain and swelling in the leg, shortness of breath, chest pain or passing out. - Post Discharge Activity
[2020-04-03] MEDS ORDERED: IBUPROFEN 600 MG TABLET (FP) PO ONE ×2 (08:43→08:57)
--- NOTE | 2020-04-03 10:46 | PDOC ---
Documentation entered by Mark Granado SCRIBE, acting as scribe for Génesis Toscano MD. Génesis Toscano MD: This documentation has been prepared by the Vannesa guerrier Xhesika, SCRIBE, under my direction and personally reviewed by me in its entirety. I confirm that the documentation accurately reflects all work, treatment, procedures, and medical decision making performed by me. Attending Attestation - Resident Resident Name: Todd Moore - ED Attending Attestation I have performed the following: I have examined & evaluated the patient, The case was reviewed & discussed with the resident, I agree w/resident's findings & plan, Exceptions are as noted - HPI HPI: 04/03/20 09:28 34y/o F with a past medical history of asthma and 8 weeks () who presents to the ED with complaint of persistent R leg pain and tenderness x several weeks. Patient was sent to the ED by PCP Dr. Debra Mario to rule out DVT and further evaluation. Pt was seen here on 03/29/20 for similar symptoms, US was negative and was dxc. Pt denies hx/o DVT or PE. Denies chest pain, palpitations, numbness or LE edema. Denies nausea, vomiting, dizziness, abdominal pain. Denies any other symptoms. c/o low back pain. sometimes radiating down back leg. also c/o posterior thigh pain, pain relieved with lying flat. no f/c no numbness or weakness. taking ibuprofen mild relief. no julia or bladder incontinence. Allergies: NKDA PCP: Debra Barry 04/03/20 10:43 - Physicial Exam PE: 04/03/20 10:44 awake alert lungs clear bilat heart rrr no mrg abd soft nt nd ext wwp. positive straight leg right leg. sensatio intact bilat lower ext. no midline spinal tenderness. nuero strength 5/5 bilat lower ext. - Medical Decision Making 04/03/20 10:44 34 yo post 8 weeks with low back pain posterior thigh leg pain, postiive straight leg raise. plan doppler due to last us unclear visualization of the popliteal v. motrin. us negative for dvt. motrin for pain. likley sciatica and low back strain from new mother leaning and lifting. Discharge - Discharge Information Problems reviewed: Yes Clinical Impression/Diagnosis: Sciatica Condition: Improved Disposition: HOME - Admission No - Follow up/Referral Referrals: Lupis Mario MD [Primary Care Provider] - - Patient Discharge Instructions - Post Discharge Activity
[2020-04-03 11:17] VITALS: BP 112/67; PULSE 50; TEMP 98.7
== END 2020-04-03 11:20 | disposition home or self-care (01) ==
LOC: JER 06:42
DX: M54.31 Sciatica, right side (principal); M71.21 Synovial cyst of popliteal space [Baker], right knee
CPT/HCPCS: 93971-TC; 99284-25

== ENCOUNTER 2020-09-24 06:13 | Day surgery (SDC) | payer OTHER ==
[2020-09-23 11:43] VITALS: BMI 30.9
[2020-09-24] MEDS ORDERED: BUPIVACAINE HCL/PF 0.75% 10 ML VIAL NR ONE (10:15)
[2020-09-24] MEDS ORDERED: LIDOCAINE HCL 1% PRESERVATIVE FREE - 30ML VIAL EP ONE (10:15)
[2020-09-24] MEDS ORDERED: ONDANSETRON *ODT* 4 MG TABLET ONE (10:48)
[2020-09-24] MEDS ORDERED: ONDANSETRON 4 MG TABLET PO ONE ×2 (10:50→10:51)
[2020-09-24 12:40] VITALS: BP 119/76; PULSE 78; TEMP 97.9
== END 2020-09-24 11:35 | disposition home or self-care (01) ==
LOC: JASU-SURG 06:13
PROVIDERS: ATTEND Pain Medicine Pain Medicine
PROC: BR16YZZ Fluoroscopy of Lumbar Facet Joint(s) using Other Contrast (ICD-10-PCS; 2020-09-24)
PROC: 3E0T3BZ Introduction of Anesthetic Agent into Peripheral Nerves and Plexi, Percutaneous Approach (ICD-10-PCS; principal; 2020-09-24 10:00)
DX: M47.816 Spondylosis without myelopathy or radiculopathy, lumbar region (principal)
CPT/HCPCS: 76000-TC-FY; 81025; Q0162

== ENCOUNTER 2022-01-31 16:34 | Emergency (ER) | payer OTHER ==
[2022-01-31 17:03] VITALS: BP 111/74; PULSE 76; TEMP 98.5; BMI 29.7
== END 2022-01-31 19:09 | disposition home or self-care (01) ==
LOC: JERFT 16:34
DX: M79.641 Pain in right hand (principal)
CPT/HCPCS: 73130-TC-RT-FY; 99283-25

== ENCOUNTER 2022-10-16 21:57 | Emergency (ER) | payer OTHER ==
[2022-10-16 22:11] VITALS: BP 119/81; PULSE 67; RESP 18; TEMP 98; BMI 69.7
[2022-10-16] MEDS ORDERED: IBUPROFEN 600 MG TABLET (FP) PO ONE ×2 (22:37→22:38)
[2022-10-16] MEDS ORDERED: ACETAMINOPHEN 500 MG TABLET (FP) PO ONE (22:37)
[2022-10-16] MEDS ORDERED: ACETAMINOPHEN 500 MG TABLET (FP) ONE (22:38)
== END 2022-10-16 22:57 | disposition home or self-care (01) ==
LOC: JERFT 21:57 → JER 21:57 → JERFT 22:57
DX: S69.92XA Unspecified injury of left wrist, hand and finger(s), initial encounter (principal); W23.0XXA Caught, crushed, jammed, or pinched between moving objects, initial encounter; Y93.89 Activity, other specified; Y99.0 Civilian activity done for income or pay
CPT/HCPCS: 73140-TC-LT-FY; 99283-25

== ENCOUNTER 2024-06-01 23:02 | Emergency (ER) | payer OTHER ==
[2024-06-01 23:08] VITALS: BP 111/68; PULSE 70; RESP 18; TEMP 98.5; BMI 34.0
[2024-06-01] MEDS ORDERED: ACETAMINOPHEN 325 MG TABLET (FP) ONE (23:28)
[2024-06-01] MEDS: ACETAMINOPHEN 500 MG TABLET (FP) PO ONE (23:29)
[2024-06-01] MEDS ORDERED: KETOROLAC TROMETHAMINE 30 MG/1 ML VIAL ONE (23:34)
[2024-06-01] MEDS: BENZOCAINE 20 % GEL TUBE MM ONE (23:35)
[2024-06-01] MEDS: KETOROLAC TROMETHAMINE 30 MG/1 ML VIAL IM ONE (23:38)
== END 2024-06-02 00:43 | disposition home or self-care (01) ==
LOC: JER 23:02
PROC: 3E0233Z Introduction of Anti-inflammatory into Muscle, Percutaneous Approach (ICD-10-PCS; principal; 2024-06-01)
DX: R68.84 Jaw pain (principal); K08.89 Other specified disorders of teeth and supporting structures
CPT/HCPCS: 99284-25